=== PATIENT | male | born 1965 | race African-American/Black ===

== ENCOUNTER 2017-12-19 01:45 | Emergency (ER) | payer MEDICARE, OTHER ==
[~2017-12-19] VITALS: Ht 170.2 cm; Wt 99.8 kg
[2017-12-19 02:46] LABS: Urine Bacteria MOD /hpf (None Seen); Urine Blood Negative /uL (Negative); Urine Mucus FEW (None Seen); Urine Specific Gravity 1.004 (1.001-1.035); Urine WBC 30 /hpf (0 - 3)
[2017-12-19 03:31] LABS: Basophils # (auto) 0 uL; Eosinophils # (auto) 0 uL; Eosinophils % (auto) 0.1 % (0.0-7.0); Lymphocytes # (auto) 0.9 uL; Monocytes # (auto) 0.6 uL
[2017-12-19 03:33] LABS: Basophils % (auto) 0.4 % (0.0-2.0); Hematocrit 32.6 % (41.0-53.0); Lymphocytes % (auto) 9.7 % (10.0-50.0); Mean Corpuscular Hemoglobin 22.9 pg (28.0-32.0); Mean Corpuscular Hgb Conc. 30.8 g/dL (32.0-36.0); Mean Corpuscular Volume 74.4 fL (80.0-100.0); Monocytes % (auto) 6.4 % (0.0-12.0); Neutrophils # (auto) 7.7 uL; Neutrophils % (auto) 83.4 % (37.0-80.0); Platelet Count (auto) 294 10^3/uL (140-450); Red Blood Cells 4.38 10^6/uL (4.5-5.90); Red Cell Distribution Width 17.7 % (11.8-14.3); White Blood Cell 9.2 10^3/uL (4.4-10.8)
[2017-12-19 03:46] LABS: Alanine Aminotransferase 14 U/L (16-61); Albumin 4.2 g/dL (3.4-5.0); Anion Gap 12 (5-15); Aspartate Aminotransferase 9 U/L (15-37); BUN/Creatinine Ratio 9.9; Blood Urea Nitrogen 9 mg/dL (7-18); Calcium 9.8 mg/dL (8.5-10.1); Carbon Dioxide 20 mmol/L (21-32); Chloride 102 mmol/L (98-107); GFR African American 113 mL/min; GFR Non-African American 93 mL/min; Glucose 116 mg/dL (74-106); Magnesium 2.3 mg/dL (1.6-2.6); Potassium 3.6 mmol/L (3.5-5.1); Sodium 134 mmol/L (136-145)
[2017-12-19 03:51] LABS: Alkaline Phosphatase 98 U/L (45-117); Bilirubin, Total 0.5 mg/dL (0.2-1.0); Total Protein 9.1 g/dL (6.4-8.2)
[2017-12-19 03:52] LABS: INR 0.99 (0.9-1.15); Partial Thromboplastin Time 24.9 sec (22.64-33.71); Prothrombin Time 10.8 sec (9.37-12.3)
[2017-12-19] MEDS ORDERED: SODIUM CHLORIDE 0.9% 1,000 ML IV ONE (07:17)
[2017-12-19] MEDS ORDERED: cefTRIAXone 1GM/10ml IVPUSH 10 ML IV ONE (07:30)
[2017-12-19] MEDS ORDERED: IOHEXOL 350 MG/ML 100ML IJ ONE (08:27)
[2017-12-19 10:58] VITALS: BP 108/75
== END 2017-12-19 13:50 | disposition home or self-care (01) ==
LOC: EDBD 01:45 → ER 01:51
DX: K44.9 Diaphragmatic hernia without obstruction or gangrene (principal); N39.0 Urinary tract infection, site not specified; M45.0 Ankylosing spondylitis of multiple sites in spine; I10 Essential (primary) hypertension; R53.2 Functional quadriplegia; Z90.49 Acquired absence of other specified parts of digestive tract; Z89.512 Acquired absence of left leg below knee; Z99.3 Dependence on wheelchair
CPT/HCPCS: 36415; 71045; 71275; 80053; 81001; 83735; 83880; 84443; 84484; 85025; 85379; 85610; 85730; 93005; 96361; 96374; 99285; J7030; Q9967

== ENCOUNTER 2024-12-31 15:36 | Emergency (ER) | payer MEDICAID, OTHER ==
[~2024-12-31] VITALS: Ht 160 cm; Wt 70.0 kg
[2024-12-31 15:51] VITALS: BP 135/78; PULSE 96; RESP 24; O2SAT 96
--- NOTE | 2024-12-31 16:18 | ED.PDOC ---
Altered Mental Status HPI Comments 59 year old female TERRI presents to the ED with chief complaint of ETOH intoxication. Patient reports that she had drank 1 pint of 5$ vodka from the liquor store today. Patient relays that she had gotten into an argument with her son earlier. Patient states she is stressed as her dog is going to be euthanized tomorrow. Patient denies any N/V/D, dizziness, headache, chest pain, or SOB. Chief Complaint: ETOH Time Seen by MD: 16:15 Primary Care Provider: [facility] Reviewed Notes: Nurses Notes, Locomotive Crane Engineer Notes, Medications, Allergies Allergies: Coded Allergies: NO KNOWN ALLERGIES (Unverified , 12/19/17) Home Meds Reported Medications Lisinopril (Lisinopril) 20 Mg Tab, 1 TAB PO DAILY 01/03/25 Metoprolol Succinate (Metoprolol Succinate Er) 50 Mg Tab, 1 TAB PO DAILY 01/03/25 Pantoprazole Sodium Sesquihydr (Pantoprazole Sodium) 40 Mg Tab, 1 TAB PO DAILY 01/03/25 Information Source: Patient, Emergency Med Personnel Mode of Arrival: EMS Severity: Moderate, Unable to Care for Self Timing: Hours Duration: Since onset Prehospital treatment: None Quality: Change in Behavior, Confusion Recent: Medication/Drug Abuse History of: None Associated Signs and Symptoms: None Past Medical History PAST MEDICAL HISTORY: HTN Past Medical History (Other): IBS Surgical History: Cholecystectomy, Hernia Repair Family History Family History: Unobtainable Social History Smoker: Non-Smoker Alcohol: Heavy Drugs: Denies Drug Use Lives In: Home Constitutional: denies: chills, diaphoresis, fatigue, fever, malaise, sweats, weakness, others EENTM: denies: blurred vision, double vision, ear bleeding, ear discharge, ear drainage, ear pain, ear ringing, eye pain, eye redness, hearing loss, mouth pain, mouth swelling, nasal discharge, nose bleeding, nose congestion, nose pain, photophobia, tearing, throat pain, throat swelling, voice changes, others Respiratory: denies: cough, hemoptysis, orthopnea, SOB at rest, shortness of breath, SOB with excertion, stridor, wheezing, others Cardiovascular: denies: chest pain, dizzy spells, diaphoresis, Dyspnea on exertion, edema, irregular heart beat, left arm pain, lightheadedness, palpitations, PND, syncope, others Gastrointestinal: denies: abdomen distended, abdominal pain, blood streaked bowels, constipated, diarrhea, dysphagia, difficulty swallowing, hematemesis, melena, nausea, poor appetite, poor fluid intake, rectal bleeding, rectal pain, vomiting, others Neurological: denies: dizziness, fainting, headache, left sided numbness, left sided weakness, numbness, paresthesia, pre-existing deficit, right sided numbness, right sided weakness, seizure, speech problems, tingling, tremors, weakness, others Musculoskeletal: denies: back pain, gout, joint pain, joint swelling, muscle pain, muscle stiffness, neck pain, others Integumetry: denies: bruises, change in color, change in hair/nails, dryness, laceration, lesions, lumps, rash, wounds, others Allergic/Immunocompromised: denies: Difficulty Healing, Frequent Infections, Hives, Itching, others Hematologic/Lymphatic: denies: anemia, blood clots, easy bleeding, easy bruising, swollen glands, others Endocrine: denies: excessive hunger, excessive sweating, excessive thirst, excessive urination, flushing, intolerance to cold, intolerance to heat, unexplained weight gain, unexplained weight loss, others Psychiatric: denies: anxiety, bipolar disorder, depression, hopeless, panic disorder, schizophrenia, sleepless, suicidal, others Unable to Obtain due to: Altered Mental Status All Other Systems: Reviewed and Negative Physical Exam General Appearance: No Apparent Distress, Normal, Other (Clinically intoxicated, slurred speech) HEENT: Normal ENT Inspection, Pharynx Normal, TMs Normal Neck: Full Range of Motion, Non-Tender, Normal, Normal Inspection Respiratory: Chest Non-Tender, Lungs Clear, No Accessory Muscle Use, No Respiratory Distress, Normal Breath Sounds Cardiovascular: No Edema, No JVD, No Murmur, No Gallop, Normal Peripheral Pulses, Regular Rate/Rhythm Breast Exam: Deferred Gastrointestinal: No Organomegaly, Non Tender, No Pulsatile Mass, Normal Bowel Sounds, Soft Genitalia: Deferred Pelvic: Deferred Rectal: Deferred Extremities: No calf tenderness, Normal capillary refill, Normal inspection, Normal range of motion, Non-tender, No pedal edema Musculoskeletal : Apperance: Normal Neurologic: Alert, airfield services officer II-XII nml as Tested, No Motor Deficits, Normal Affect, Normal Mood, No Sensory Deficits Cerebellar Function: Normal Reflexes: Normal Skin: Dry, Normal Color, Warm Lymphatic: No Adenopathy Was a procedure done? Was a procedure done?: No Differential Diagnosis (ALOC) Differential Diagnosis: Dehydration, ETOH Intoxication X-Ray, Labs, Meds, VS Vital Signs Date Time Temp Pulse Resp B/P (MAP) Pulse Ox O2 Delivery O2 Flow Rate FiO2 12/31/24 15:51 98.0 96 24 135/78 (97) 96 Time of 1ST Reevaluation: 17:15 Reevaluation 1ST: Unchanged Patient Education/Counseling: Diagnosis, Treatment Family Education/Counseling: No Family Present Additional Information The following tests were ordered, and results were reviewed by me: Additional Information was gathered from interviewing the following independent historians: I reviewed and agreed with the following test results read by other providers: I discussed treatment and results with medical personnel and: Departure 1 Departure Time of Disposition: 17:50 (Intoxicated. Patient eloped from the emergency department) Impression: Primary Impression: Alcohol intoxication with delirium Disposition: 07 LEFT AWOL/ELOPED Condition: Serious Critical Care Note Critical Care Time?: No Stability Stability form required: No Heart Score Heart Score: Heart Score Response (Comments) Value History N/A 0 EKG N/A 0 Age N/A 0 Risk Factors N/A 0 Troponin N/A 0 Total 0 I personally scribed for SHERYL BARNES MD ([email or web address]) on 12/31/24 at 16:18. Electronically submitted by Den Nagel ([email or web address]). SHERYL BARNES MD Dec 31, 2024 16:18
== END 2025-01-01 06:51 | disposition left against medical advice (07) ==
LOC: ER 15:36 → EDSEX 15:36 → EDBD 15:36 → EDUNIT# 15:36 → ER 01-01 06:51
DX: F10.129 Alcohol abuse with intoxication, unspecified (principal); I10 Essential (primary) hypertension; Z98.890 Other specified postprocedural states; Z90.49 Acquired absence of other specified parts of digestive tract; Z79.899 Other long term (current) drug therapy

== ENCOUNTER 2025-01-02 21:20 | Inpatient (IN) | payer MEDICAID ==
[~2025-01-02] VITALS: Ht 152.4 cm; Wt 71.0 kg
[2025-01-02 21:55] VITALS: PULSE 94; RESP 20; O2SAT 96
[2025-01-02] MEDS: LORazepam 2MG/ML-1ML VIAL IM ONE (23:07)
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
[2025-01-03 00:45] LABS: Albumin 4.4 g/dL (3.2-4.8); Anion Gap 13 (5-15); Bilirubin, Total 0.3 mg/dL (0.2-1.0); Calcium 9.3 mg/dL (8.7-10.4); Carbon Dioxide 26 mmol/L (20-31); Chloride 104 mmol/L (98-107); Sodium 143 mmol/L (136-145)
[2025-01-03 00:46] LABS: Total Protein 7.4 g/dL (5.7-8.2)
[2025-01-03 00:59] LABS: Basophils # (auto) 0.1 10 ^3/uL (0-0.2); Eosinophils # (auto) 0.1 10 ^3/uL (0-0.8); Hemoglobin 12.2 g/dL (12.2-16.2); Monocytes # (auto) 0.5 10 ^3/uL (0-1.3); White Blood Cell 8.5 10^3/uL (4.4-10.8)
[2025-01-03 01:01] LABS: Basophils % (auto) 1.5 % (0.0-2.0); Eosinophils % (auto) 0.8 % (0.0-7.0); Hematocrit 36.3 % (36.0-46.0); Lymphocytes # (auto) 1.6 10 ^3/uL (0.4-5.4); Lymphocytes % (auto) 19.3 % (10.0-50.0); Mean Corpuscular Hemoglobin 36.6 pg (28.0-32.0); Mean Corpuscular Hgb Conc. 33.7 g/dL (32.0-36.0); Mean Corpuscular Volume 108.7 fL (80.0-100.0); Neutrophils # (auto) 6.1 10 ^3/uL (1.6-8.6); Neutrophils % (auto) 72.4 % (37.0-80.0); Nucleated Red Blood Cells % 0.1 %; Platelet Count (auto) 292 10^3/uL (140-450); Red Blood Cells 3.34 10^6/uL (4.0-5.20)
[2025-01-03 01:14] LABS: Alanine Aminotransferase 41 U/L (7-40); Alkaline Phosphatase 283 U/L (46-116); Aspartate Aminotransferase 176 U/L (13-40); BUN/Creatinine Ratio 7.5 (10.0-20.0); Blood Urea Nitrogen < 5 mg/dL (9-23); Glucose 112 mg/dL (74-106); Potassium 3.1 mmol/L (3.5-5.1)
[2025-01-03 01:59] LABS: Blood Alcohol 303.8 mg/dL (<10)
[2025-01-03] MEDS: SODIUM CHLORIDE 0.9% 1,000 ML IV ONE (04:29)
[2025-01-03] MEDS: LORazepam 2MG/ML-1ML VIAL IV PRN ×2 (04:30→15:24)
[2025-01-03] MEDS: LORazepam 2MG/ML-1ML VIAL IV SCH ×2 (06:45→08:33)
[2025-01-03] MEDS: LORazepam 2MG/ML-1ML VIAL IV ONE (06:45)
[2025-01-03] MEDS: LOPERAMIDE HCL 2 MG CAP/TAB PO PRN (06:46)
[2025-01-03] MEDS: ONDANSETRON HCL 4 MG/2 ML VIAL IV PRN (06:46)
[2025-01-03] MEDS: THIAMINE HCL 100 MG TAB PO ONE (06:46)
[2025-01-03] MEDS: ACETAMINOPHEN 325 MG TAB PO ONE (06:52)
[2025-01-03] MEDS ORDERED: NITROGLYCERIN 0.4 MG SL TAB SL PRN (07:15)
[2025-01-03] MEDS ORDERED: ACETAMINOPHEN 325 MG TAB PO PRN (07:15)
[2025-01-03] MEDS ORDERED: MORPHINE SULFATE INJ 2 MG/ml SYRG IV PRN (07:15)
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
[2025-01-03 08:00] VITALS: PULSE 82; RESP 16; O2SAT 99
[2025-01-03] MEDS ORDERED: LISI20TA56 PO (08:45)
[2025-01-03] MEDS ORDERED: PANT40T PO (08:45)
[2025-01-03] MEDS ORDERED: METO-289 PO (08:45)
[2025-01-03] MEDS: POTASSIUM EFFERVESENT TAB 25 MEQ PO ONE (09:05)
[2025-01-03] MEDS: MAGNESIUM SULFATE 1GM/100ML 100 ML IV SCH (09:06)
[2025-01-03] MEDS: SODIUM CHLORIDE 0.9% 1,000 ML IVB ONE (09:06)
[2025-01-03] MEDS: METOPROLOL SUCCINATE XL 50 MG TAB PO SCH (10:28)
[2025-01-03] MEDS: PANTOPRAZOLE 40 MG TAB PO SCH (10:29)
[2025-01-03] MEDS: LISINOPRIL 20 MG TAB PO SCH (10:29)
[2025-01-03] MEDS: MULTIPLE VITAMIN TAB PO SCH (10:29)
[2025-01-03] MEDS: THIAMINE 100mg/ml INJ (200mg/2ml VIAL) IV SCH (10:30)
[2025-01-03 11:36] LABS: Urine Bacteria None Seen /hpf (None Seen)
[2025-01-03] MEDS: FOLIC ACID 1 MG in D5W 5% 50 ML INJ SCH (11:39)
[2025-01-03 11:59] LABS: Urine Blood Negative /uL (Negative); Urine Clarity Clear (Clear); Urine Color Light-Yellow (Yellow); Urine Hyaline Cast FEW /lpf (0 - 2); Urine Mucus FEW (None Seen); Urine Protein, UAD Negative (Negative); Urine Specific Gravity 1.014 (1.001-1.035); Urine Squamous Epithelial Cell FEW /hpf (<5); Urine Urobilinogen Normal (Negative); Urine WBC 4 /HPF (0-5)
[2025-01-03 12:16] LABS: Amphetamine Screen, Urine Neg (NEGATIVE); Barbiturate Scree,Urine Neg (NEGATIVE); Benzodiazephine Screen, Urine Pos (NEGATIVE); Cannabinoid Screen, Urine Neg (NEGATIVE); Cocaine Screen, Urine Neg (NEGATIVE); Opiate Scree,Urine Neg (NEGATIVE); Phencyclidine Screen, Urine Neg (NEGATIVE)
[2025-01-03 12:23] LABS: Basophils # (auto) 0.1 10 ^3/uL (0-0.2); Eosinophils # (auto) 0 10 ^3/uL (0-0.8); Hemoglobin 12.6 g/dL (12.2-16.2); Lymphocytes # (auto) 0.7 10 ^3/uL (0.4-5.4); Lymphocytes % (auto) 8.6 % (10.0-50.0); Monocytes # (auto) 0.4 10 ^3/uL (0-1.3); Nucleated Red Blood Cells % 0.1 %
[2025-01-03 12:28] LABS: Eosinophils % (auto) 0.4 % (0.0-7.0); Hematocrit 37.9 % (36.0-46.0); Mean Corpuscular Hemoglobin 36.3 pg (28.0-32.0); Mean Corpuscular Hgb Conc. 33.1 g/dL (32.0-36.0); Mean Corpuscular Volume 109.8 fL (80.0-100.0); Monocytes % (auto) 5.6 % (0.0-12.0); Neutrophils # (auto) 6.5 10 ^3/uL (1.6-8.6); Neutrophils % (auto) 84.4 % (37.0-80.0); Platelet Count (auto) 210 10^3/uL (140-450); Red Blood Cells 3.46 10^6/uL (4.0-5.20); Red Cell Distribution Width 16.2 % (11.8-14.3); White Blood Cell 7.7 10^3/uL (4.4-10.8)
[2025-01-03 12:45] LABS: Anion Gap 12 (5-15); Calcium 9.1 mg/dL (8.7-10.4); Carbon Dioxide 24 mmol/L (20-31); Chloride 103 mmol/L (98-107); Potassium 4.3 mmol/L (3.5-5.1); Sodium 139 mmol/L (136-145)
[2025-01-03 12:51] LABS: Blood Alcohol 8.5 mg/dL (<10); Glucose 98 mg/dL (74-106)
[2025-01-03 12:52] LABS: BUN/Creatinine Ratio 7.2 (10.0-20.0); Blood Urea Nitrogen < 5 mg/dL (9-23); Magnesium 2.3 mg/dL (1.6-2.6)
[2025-01-03 20:00] VITALS: BP 168/79; PULSE 66; RESP 18; TEMP 98.3; O2SAT 97
[2025-01-03 20:30] VITALS: BP 178/85; PULSE 62; PULSE 64; RESP 17; TEMP 98.3; O2SAT 97
[2025-01-03] MEDS ORDERED: METOPROLOL TARTRATE 50 MG TAB PO SCH (20:30)
[2025-01-03 21:00] VITALS: BP 178/85; PULSE 68; RESP 20; O2SAT 99
[2025-01-03 22:00] VITALS: BP 156/74; PULSE 62; RESP 18; O2SAT 96
[2025-01-03] MEDS: METOPROLOL TARTRATE 50 MG TAB PO ONE (22:46)
[2025-01-03 23:00] VITALS: BP 155/88; PULSE 76; RESP 13; O2SAT 92
[2025-01-04] VITALS (18 sets, daily range): BP systolic 100–175; BP diastolic 67–95; PULSE 60–83; RESP 10–23; TEMP 98–99.2; O2SAT 93–99
[2025-01-04 06:14] LABS: Eosinophils # (auto) 0.1 10 ^3/uL (0-0.8); Hemoglobin 12.7 g/dL (12.2-16.2); Monocytes # (auto) 0.4 10 ^3/uL (0-1.3); Nucleated Red Blood Cells % 0.1 %
[2025-01-04 06:19] LABS: Basophils # (auto) 0 10 ^3/uL (0-0.2); Basophils % (auto) 0.7 % (0.0-2.0); Eosinophils % (auto) 1.8 % (0.0-7.0); Hematocrit 37.6 % (36.0-46.0); Lymphocytes # (auto) 0.9 10 ^3/uL (0.4-5.4); Lymphocytes % (auto) 12.3 % (10.0-50.0); Mean Corpuscular Hemoglobin 36.8 pg (28.0-32.0); Mean Corpuscular Hgb Conc. 33.9 g/dL (32.0-36.0); Mean Corpuscular Volume 108.5 fL (80.0-100.0); Monocytes % (auto) 5.3 % (0.0-12.0); Neutrophils # (auto) 5.7 10 ^3/uL (1.6-8.6); Neutrophils % (auto) 79.9 % (37.0-80.0); Platelet Count (auto) 196 10^3/uL (140-450); Red Blood Cells 3.46 10^6/uL (4.0-5.20); Red Cell Distribution Width 16.1 % (11.8-14.3); White Blood Cell 7.1 10^3/uL (4.4-10.8)
[2025-01-04 06:28] LABS: Alanine Aminotransferase 37 U/L (7-40); Albumin 4.3 g/dL (3.2-4.8); Anion Gap 10 (5-15); Calcium 10.2 mg/dL (8.7-10.4); Carbon Dioxide 27 mmol/L (20-31); Chloride 98 mmol/L (98-107); Glucose 89 mg/dL (74-106); Total Protein 7.4 g/dL (5.7-8.2)
[2025-01-04 06:35] LABS: Alkaline Phosphatase 299 U/L (46-116); Aspartate Aminotransferase 132 U/L (13-40); BUN/Creatinine Ratio 7.4 (10.0-20.0); Bilirubin, Total 1.3 mg/dL (0.2-1.0); Blood Urea Nitrogen < 5 mg/dL (9-23); Sodium 135 mmol/L (136-145)
[2025-01-04] MEDS: FOLIC ACID 1 MG in D5W 5% 50 ML INJ SCH (10:55)
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
== END 2025-01-04 13:55 | disposition home or self-care (01) | DRG 775 ==
LOC: EDBD 21:20 → ER 21:20 → OVERFLOW 01-03 07:01
PROVIDERS: ADMIT Hospitalist; ATTEND Hospitalist
DX: F10.139 Alcohol abuse with withdrawal, unspecified (principal); F22 Delusional disorders; E87.6 Hypokalemia; I10 Essential (primary) hypertension; K58.9 Irritable bowel syndrome, unspecified; Z90.49 Acquired absence of other specified parts of digestive tract; Z96.651 Presence of right artificial knee joint; Z90.710 Acquired absence of both cervix and uterus; Y90.9 Presence of alcohol in blood, level not specified; Z79.899 Other long term (current) drug therapy
CPT/HCPCS: 36415; 80048; 80053; 80307; 80320; 81001; 83735; 85025; 96361; 96372; 96374; 96375; G0378; J2405; J7060

== ENCOUNTER 2025-05-08 13:56 | Emergency (ER) | payer MEDICAID ==
[~2025-05-08] VITALS: Ht 154.9 cm; Wt 68.1 kg
[~2025-05-08 13:56] MED LIST: LISI20TA56 PO; METO-289 PO; PANT40T PO
--- NOTE | 2025-05-08 14:24 | ED.PDOC ---
GI ASSESSMENT HPI Comments 59 y/o F, with PMHx of alcohol abuse and HTN presents to the ED for CC of nausea/vomiting. Per EMS, patient is coming from home where she c/o N/V/D xdays. Patient relays, drinking half a pint of Vodka today (05/08/25). Patient denies visual hallucinations, auditory hallucinations, melena, tremors, or hematochezia. No other symptoms or modifiers present at this time. Chief Complaint: Nausea/Vomiting Time Seen by MD: 14:15 Primary Care Provider: [facility] Reviewed Notes: Nurses Notes, Medications, Allergies Allergies: Coded Allergies: NO KNOWN ALLERGIES (Unverified , 12/19/17) Home Meds Reported Medications Lisinopril (Lisinopril) 20 Mg Tab, 1 TAB PO DAILY 01/03/25 Metoprolol Succinate (Metoprolol Succinate Er) 50 Mg Tab, 1 TAB PO DAILY 01/03/25 Pantoprazole Sodium Sesquihydr (Pantoprazole Sodium) 40 Mg Tab, 1 TAB PO DAILY 01/03/25 Information Source: Patient, Emergency Med Personnel Mode of Arrival: EMS Timing: Days Duration: Since onset Prehospital treatment: None Quality: None Vomitus: Watery Stool: Impaction Severity: Moderate Recent: None Recent Hx of: None Pain Location: None Modifying Factors: Nothing Associated sign and symptoms: Nausea, Vomiting, Diarrhea Past Medical History PAST MEDICAL HISTORY: HTN Surgical History: Cholecystectomy, Hernia Repair Family History Family History: Unobtainable Social History Smoker: Non-Smoker Alcohol: Heavy Drugs: Denies Drug Use Lives In: Home Constitutional: denies: chills, diaphoresis, fatigue, fever, malaise, sweats, weakness, others EENTM: denies: blurred vision, double vision, ear bleeding, ear discharge, ear drainage, ear pain, ear ringing, eye pain, eye redness, hearing loss, mouth pain, mouth swelling, nasal discharge, nose bleeding, nose congestion, nose pain, photophobia, tearing, throat pain, throat swelling, voice changes, others Respiratory: denies: cough, hemoptysis, orthopnea, SOB at rest, shortness of breath, SOB with excertion, stridor, wheezing, others Cardiovascular: denies: chest pain, dizzy spells, diaphoresis, Dyspnea on exertion, edema, irregular heart beat, left arm pain, lightheadedness, palpitations, PND, syncope, others Gastrointestinal: denies: abdomen distended, abdominal pain, blood streaked bowels, constipated, diarrhea, dysphagia, difficulty swallowing, hematemesis, melena, nausea, poor appetite, poor fluid intake, rectal bleeding, rectal pain, vomiting, others Genitourinary: denies: abnormal vagina bleeding, burning, dyspareunia, dysuria, flank pain, frequency, hematuria, incontinence, pain, , vagina discharge, urgency, others Neurological: denies: dizziness, fainting, headache, left sided numbness, left sided weakness, numbness, paresthesia, pre-existing deficit, right sided numbness, right sided weakness, seizure, speech problems, tingling, tremors, weakness, others Musculoskeletal: denies: back pain, gout, joint pain, joint swelling, muscle pain, muscle stiffness, neck pain, others Integumetry: denies: bruises, change in color, change in hair/nails, dryness, laceration, lesions, lumps, rash, wounds, others Allergic/Immunocompromised: denies: Difficulty Healing, Frequent Infections, Hives, Itching, others Hematologic/Lymphatic: denies: anemia, blood clots, easy bleeding, easy bruising, swollen glands, others Endocrine: denies: excessive hunger, excessive sweating, excessive thirst, excessive urination, flushing, intolerance to cold, intolerance to heat, unexplained weight gain, unexplained weight loss, others Psychiatric: denies: anxiety, bipolar disorder, depression, hopeless, panic disorder, schizophrenia, sleepless, suicidal, others All Other Systems: Reviewed and Negative Physical Exam General Appearance: Moderate Distress HEENT: Normal ENT Inspection, Pharynx Normal, TMs Normal Neck: Full Range of Motion, Non-Tender, Normal, Normal Inspection Respiratory: Chest Non-Tender, Lungs Clear, No Accessory Muscle Use, No Respiratory Distress, Normal Breath Sounds Cardiovascular: No Edema, No JVD, No Murmur, No Gallop, Normal Peripheral Pulses, Regular Rate/Rhythm Breast Exam: Deferred Gastrointestinal: No Organomegaly, Non Tender, No Pulsatile Mass, Normal Bowel Sounds, Soft Genitalia: Deferred Pelvic: Deferred Rectal: Deferred Extremities: No calf tenderness, Normal capillary refill, Normal inspection, Normal range of motion, Non-tender, No pedal edema Musculoskeletal : Apperance: Normal Neurologic: Alert, casino porter II-XII nml as Tested, No Motor Deficits, Normal Affect, Normal Mood, No Sensory Deficits Cerebellar Function: NOT DONE Reflexes: NOT DONE Skin: Dry, Normal Color, Warm Peripheral Pulses: 3+ Radial (R), 3+ Radial (L) Lymphatic: No Adenopathy Was a procedure done? Was a procedure done?: No GI differential Dx Differential Diagnosis: Constipation, Diverticular disease, Esophagitis, Gastritis/PUD, Gastroenteritis, Inflammatory BD, Electrolyte Imbalance, Food Poisoning, Bacterial, Viral X-Ray, Labs, Meds, VS Vital Signs Date Time Temp Pulse Resp B/P (MAP) Pulse Ox O2 Delivery O2 Flow Rate FiO2 05/08/25 13:58 98.2 88 18 145/89 (107) 97 98.2 Patient alert. Vitals stable. Possible dehydration. Answering all questions. History of alcohol abuse. Establish intravenous access. Was given fluids. Was given thiamine. Combination of alcohol abuse with heat exhaustion. Explained to the patient. Was told to follow up with her primary care physician. Was told to come back if there is any problem. Time of 1ST Reevaluation: 14:45 Reevaluation 1ST: Unchanged Patient Education/Counseling: Diagnosis, Treatment Family Education/Counseling: No Family Present SEPSIS Sepsis Screen Date sepsis recognized/suspect: May 08, 2025 Time Sepsis recognized/suspect: 8 Recent Procedure: No On Antibiotic Therapy: No Respiratory Rate >20: No Heart Rate >90: No Temp<36 C (96.8 F) or >38.3 C: No SBP <90 or MAP <65 mmHG: No New Acute Mental Status Change: No Is the patient on CPAP, BIPAP,: No Physician Orders Urinalysis (05/08/25 14:21) Sodium Chloride 0.9% (05/08/25 14:30) Sodium Chloride 0.9% (05/08/25 14:30) Vital Signs Date Time Temp Pulse Resp B/P (MAP) Pulse Ox O2 Delivery O2 Flow Rate FiO2 05/08/25 13:58 98.2 88 18 145/89 (107) 97 98.2 Departure 1 Departure Time of Disposition: 14:35 Impression: Primary Impression: Alcohol intoxication Qualified Codes: F10.920 - Alcohol use, unspecified with intoxication, uncomplicated Additional Impression: Heat exhaustion Qualified Codes: T67.5XXA - Heat exhaustion, unspecified, initial encounter Disposition: HOME / SELF CARE / HOMELESS Condition: Good Discharged With: Self Critical Care Note Critical Care Time?: No Stability Stability form required: No Heart Score Heart Score: Heart Score Response (Comments) Value History N/A 0 EKG N/A 0 Age N/A 0 Risk Factors N/A 0 Troponin N/A 0 Total 0 I personally scribed for ARIC LLOYD MD ([email or web address]) on 05/08/25 at 14:24. Electronically submitted by Ekta Chisholm ([email or web address]). I personally scribed for ARIC LLOYD MD ([email or web address]) on 05/08/25 at 14:31. Electronically submitted by Ekta Chisholm ([email or web address]). ARIC LLOYD MD May 08, 2025 14:24
[2025-05-08] MEDS: SODIUM CHLORIDE 0.9% 1,000 ML IV ONE ×2 (15:26→15:32)
[2025-05-08 15:30] VITALS: BP 139/89; PULSE 90; RESP 18; TEMP 98.6; O2SAT 98
[2025-05-08] MEDS: THIAMINE 100mg/ml INJ (200mg/2ml VIAL) IV ONE (15:31)
== END 2025-05-08 17:20 | disposition left against medical advice (07) ==
LOC: EDBD 13:56 → ER 13:56
DX: T67.5XXA Heat exhaustion, unspecified, initial encounter (principal); F10.929 Alcohol use, unspecified with intoxication, unspecified; I10 Essential (primary) hypertension; Z98.890 Other specified postprocedural states; Z79.899 Other long term (current) drug therapy; Z90.49 Acquired absence of other specified parts of digestive tract; X58.XXXA Exposure to other specified factors, initial encounter; Y93.9 Activity, unspecified; Y92.89 Other specified places as the place of occurrence of the external cause; Y99.8 Other external cause status; Y90.8 Blood alcohol level of 240 mg/100 ml or more
CPT/HCPCS: 36415; 80320; 96361; 96374; 99283; J3411; J7030

== ENCOUNTER 2025-05-09 15:31 | Emergency (ER) | payer MEDICAID ==
[~2025-05-09] VITALS: Ht 152.4 cm; Wt 64.0 kg
--- NOTE | 2025-05-09 15:45 | ED.PDOC ---
General HPI Comments 59 y/o F, BIBA, with PMHx of alcohol abuse and HTN presents to the ED for CC of urinary retention. EMS reports, patient is coming from home where she c/o urinary retention onset, x1day. Patient endorses, drinking alcohol heavily having approximately half a pint of vodka daily. At this time patient is having active visual hallucinations; reports "it's black and there is bats flying". Patient denies dysuria, hematuria, back pain, fever, nausea, or vomiting. No other symptoms or modifying factors present at this time. Chief Complaint: Urinary Time Seen by MD: 15:36 Primary Care Provider: [facility] Reviewed notes: Nurses Notes, Medications, Allergies Allergies: Coded Allergies: NO KNOWN ALLERGIES (Unverified , 12/19/17) Home Meds Reported Medications Lisinopril (Lisinopril) 20 Mg Tab, 1 TAB PO DAILY 01/03/25 Metoprolol Succinate (Metoprolol Succinate Er) 50 Mg Tab, 1 TAB PO DAILY 01/03/25 Pantoprazole Sodium Sesquihydr (Pantoprazole Sodium) 40 Mg Tab, 1 TAB PO DAILY 01/03/25 Information Source: Patient, Emergency Med Personnel Mode of Arrival: EMS Severity: Moderate Inability to void: Moderate Timing: Days Duration: Since onset Prehospital treatment: None Onset: Spontaneous Symptoms: Inability to void History of: None Modifying factors: None associated signs and symptoms: Abdominal Pain Past Medical History PAST MEDICAL HISTORY: HTN Surgical History: Cholecystectomy, Hernia Repair Family History Family History: Unobtainable Social History Smoker: Non-Smoker Alcohol: Heavy Drugs: Denies Drug Use Lives In: Home Constitutional: denies: chills, diaphoresis, fatigue, fever, malaise, sweats, weakness, others EENTM: denies: blurred vision, double vision, ear bleeding, ear discharge, ear drainage, ear pain, ear ringing, eye pain, eye redness, hearing loss, mouth pain, mouth swelling, nasal discharge, nose bleeding, nose congestion, nose pain, photophobia, tearing, throat pain, throat swelling, voice changes, others Respiratory: denies: cough, hemoptysis, orthopnea, SOB at rest, shortness of breath, SOB with excertion, stridor, wheezing, others Cardiovascular: denies: chest pain, dizzy spells, diaphoresis, Dyspnea on exertion, edema, irregular heart beat, left arm pain, lightheadedness, palpitations, PND, syncope, others Gastrointestinal: reports: abdomen distended, abdominal pain; denies: blood streaked bowels, constipated, diarrhea, dysphagia, difficulty swallowing, hematemesis, melena, nausea, poor appetite, poor fluid intake, rectal bleeding, rectal pain, vomiting, others Genitourinary: denies: abnormal vagina bleeding, burning, dyspareunia, dysuria, flank pain, frequency, hematuria, incontinence, pain, , vagina discharge, urgency, others Neurological: denies: dizziness, fainting, headache, left sided numbness, left sided weakness, numbness, paresthesia, pre-existing deficit, right sided numbness, right sided weakness, seizure, speech problems, tingling, tremors, weakness, others Musculoskeletal: denies: back pain, gout, joint pain, joint swelling, muscle pain, muscle stiffness, neck pain, others Integumetry: denies: bruises, change in color, change in hair/nails, dryness, laceration, lesions, lumps, rash, wounds, others Allergic/Immunocompromised: denies: Difficulty Healing, Frequent Infections, Hives, Itching, others Hematologic/Lymphatic: denies: anemia, blood clots, easy bleeding, easy bruising, swollen glands, others Endocrine: denies: excessive hunger, excessive sweating, excessive thirst, excessive urination, flushing, intolerance to cold, intolerance to heat, unexplained weight gain, unexplained weight loss, others Psychiatric: denies: anxiety, bipolar disorder, depression, hopeless, panic disorder, schizophrenia, sleepless, suicidal, others All Other Systems: Reviewed and Negative Physical Exam General Appearance: Mild Distress, Normal HEENT: Normal ENT Inspection, Pharynx Normal Neck: Full Range of Motion, Non-Tender, Normal, Normal Inspection Respiratory: Chest Non-Tender, Lungs Clear, No Accessory Muscle Use, No Respiratory Distress, Normal Breath Sounds, Other (ROS INTACT) Cardiovascular: No Edema, No Murmur, No Gallop, Normal Peripheral Pulses, Regular Rate/Rhythm Breast Exam: Deferred Gastrointestinal: No Organomegaly, Non Tender, No Pulsatile Mass, Normal Bowel Sounds, Soft Genitalia: Deferred Pelvic: Deferred Rectal: Deferred Extremities: No calf tenderness, Normal capillary refill, Normal inspection, Normal range of motion, Non-tender, No pedal edema Musculoskeletal : Apperance: Normal Neurologic: assistant to the director II-XII nml as Tested, Disoriented, No Motor Deficits, Normal Affect, Normal Mood, No Sensory Deficits, Other (PATIENT HALLICINATING) Cerebellar Function: Normal Reflexes: Normal Skin: Dry, Normal Color, Warm Lymphatic: No Adenopathy Was a procedure done? Was a procedure done?: No Differential Diagnosis Kidney stone (Female): N/A Kidney stone (Male): N/A Penile/Scrotal: N/A Urinary Problem (Male): N/A Urinary Problem (Female): Urinary retention, Other (ETOH INTOXICATION, ETOH WITHDRAWALS) X-Ray, Labs, Meds, VS Vital Signs Date Time Temp Pulse Resp B/P (MAP) Pulse Ox O2 Delivery O2 Flow Rate FiO2 05/09/25 16:07 98.1 76 20 119/79 (92) 97 98.1 05/09/25 15:57 71 19 93 Room Air* 0 21 05/09/25 15:57 98.5 71 19 150/85 (106) 93 98.5 Lab Test 05/09/25 16:43 05/09/25 15:50 Range/Units Urine Color Light-yellow Yellow Urine Clarity Clear Clear Urine pH 6.0 5.0-9.0 Urine Specific Hodge 1.010 1.001-1.035 Urine Protein Negative Negative Urine Ketones Negative Negative Urine Blood Negative Negative /uL Urine Nitrite Negative Negative Urine Bilirubin Negative Negative Urine Urobilinogen Normal Negative mg/dL Urine Leukocyte Esterase Negative Negative /uL Urine RBC None seen 0 - 4 /hpf Urine Microscopic WBC < 1 0-5 /HPF Urine Squamous Epithelial Cells None seen <5 /hpf Urine Bacteria None seen None Seen /hpf Urine Glucose Normal Normal mg/dL Sodium Level 143 136-145 mmol/L Potassium Level 4.0 3.5-5.1 mmol/L Chloride Level 105 98-107 mmol/L Carbon Dioxide Level 24 20-31 mmol/L Anion Gap 14 5-15 Blood Urea Nitrogen 11 9-23 mg/dL Creatinine 0.91 0.550-1.02 mg/dL Glomerular Filtration Rate Calc 72 >90 mL/min BUN/Creatinine Ratio 12.1 10.0-20.0 Serum Glucose 82 74-106 mg/dL Calcium Level 9.4 8.7-10.4 mg/dL Plasma/Serum Blood Alcohol 310.1 H <10 mg/dL Current Medications Medications (Trade) Dose Ordered Sig/Usmaa Route Start Time Stop Time Status Last Admin Sodium Chloride 1,000 ml @ 1,000 mls/hr Q1H ONCE IV 05/09/25 15:45 05/09/25 16:44 DC 05/09/25 15:56 Lorazepam (Ativan Inj) 1 mg ONCE ONCE IV 05/09/25 16:00 05/09/25 16:01 DC 05/09/25 16:08 Ondansetron HCl (Zofran) 4 mg ONCE ONCE IV 05/09/25 17:00 05/09/25 17:01 DC 05/09/25 16:56 X-Ray, Labs, Meds, VS Comment Imaging: X-rays and CT scans were reviewed and interpreted by this provider, imaging shows no fractures and no pathological disease. Pending radiology review. Laboratory: Labs reviewed and interpreted by this provider. No significant ab normalities noted. Patient has prior medical visits reviewed. Med reconciliation performed Vital signs reviewed Martinez catheter inserted, patient was able to express 1000 states he is Recommended to patient leaving Martinez catheter inserted and her to follow up with Urology or PCP. Patient refused. Patient states she has a hard time getting to appointments and she does not know if she will be able to get to her appointments. Time of 1ST Reevaluation: 16:06 Reevaluation 1ST: Unchanged Patient Education/Counseling: Diagnosis, Treatment, Need For Follow Up (Follow up with PCP next available appointment) Family Education/Counseling: No Family Present SEPSIS Sepsis Screen Physician Orders Insert/Manage Urinary Catheter QSHIFT (05/09/25 16:38) Vital Signs Date Time Temp Pulse Resp B/P (MAP) Pulse Ox O2 Delivery O2 Flow Rate FiO2 05/09/25 16:07 98.1 76 20 119/79 (92) 97 98.1 05/09/25 15:57 71 19 93 Room Air* 0 21 05/09/25 15:57 98.5 71 19 150/85 (106) 93 98.5 Medications Medications Dose Ordered Sig/Usama Route Start Time Stop Time Status Last Admin Dose Admin Lorazepam 1 mg ONCE ONCE IV 05/09/25 16:00 05/09/25 16:01 DC 05/09/25 16:08 Ondansetron HCl 4 mg ONCE ONCE IV 05/09/25 17:00 05/09/25 17:01 DC 05/09/25 16:56 Sodium Chloride 1,000 ml @ 1,000 mls/hr Q1H ONCE IV 05/09/25 15:45 05/09/25 16:44 DC 05/09/25 15:56 Departure 1 Departure Time of Disposition: 17:54 Impression: Primary Impression: Alcohol intoxication Qualified Codes: F10.920 - Alcohol use, unspecified with intoxication, uncomplicated Additional Impressions: ALCOHOL ABUSE WITH WITHDRAWAL, UNSPECIFIED Urinary retention Disposition: 01 HOME / SELF CARE / HOMELESS Condition: Fair Discharged With: Self Critical Care Note Critical Care Time?: No Stability Stability form required: No Heart Score Heart Score: Heart Score Response (Comments) Value History N/A 0 EKG N/A 0 Age N/A 0 Risk Factors N/A 0 Troponin N/A 0 Total 0 I personally scribed for CHAPARRITA BRAVO ([email or web address]) on 05/09/25 at 15:45. Electronically submitted by Ekta Chisholm ([email or web address]). CHAPARRITA BRAVO May 09, 2025 15:45
[2025-05-09] MEDS: SODIUM CHLORIDE 0.9% 1,000 ML IV ONE (15:56)
[2025-05-09 15:57] VITALS: PULSE 71; RESP 19; O2SAT 93
[2025-05-09 16:07] VITALS: TEMP 98.1
[2025-05-09] MEDS: LORazepam 2MG/ML-1ML VIAL IV ONE (16:08)
[2025-05-09 16:20] LABS: Chloride 105 mmol/L (98-107); Potassium 4.0 mmol/L (3.5-5.1); Sodium 143 mmol/L (136-145)
[2025-05-09 16:21] LABS: Anion Gap 14 (5-15); Calcium 9.4 mg/dL (8.7-10.4); Carbon Dioxide 24 mmol/L (20-31)
[2025-05-09 16:26] LABS: BUN/Creatinine Ratio 12.1 (10.0-20.0); Blood Urea Nitrogen 11 mg/dL (9-23); Glucose 82 mg/dL (74-106)
[2025-05-09 16:55] LABS: Urine Protein, UAD Negative (Negative)
[2025-05-09] MEDS: ONDANSETRON HCL 4 MG/2 ML VIAL IV ONE (16:56)
[2025-05-09 17:59] VITALS: BP 175/93; PULSE 76; RESP 19; O2SAT 97
== END 2025-05-09 18:10 | disposition home or self-care (01) ==
LOC: EDBD 15:31 → ER 15:31
DX: F10.139 Alcohol abuse with withdrawal, unspecified (principal); F10.129 Alcohol abuse with intoxication, unspecified; R33.9 Retention of urine, unspecified; R44.1 Visual hallucinations; I10 Essential (primary) hypertension; Z90.49 Acquired absence of other specified parts of digestive tract; Z98.890 Other specified postprocedural states; Z79.899 Other long term (current) drug therapy; Y90.8 Blood alcohol level of 240 mg/100 ml or more
CPT/HCPCS: 36415; 51702; 80048; 80320; 81001; 96361; 96374; 96375; 99284; J2060; J2405; J7030

== ENCOUNTER 2025-05-14 21:18 | Emergency (ER) | payer MEDICAID, OTHER ==
[~2025-05-14] VITALS: Ht 167.6 cm; Wt 72.6 kg
[2025-05-14] MEDS ORDERED: SODIUM CHLORIDE 0.9% 1,000 ML IV ONE (21:45)
[2025-05-14] MEDS ORDERED: THIAMINE HCL 100 MG TAB PO ONE (21:45)
[2025-05-14 21:54] VITALS: BP 137/82; PULSE 110; RESP 20; TEMP 98.6; O2SAT 97
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
[2025-05-14 22:24] LABS: Hematocrit 33.9 % (36.0-46.0); Hemoglobin 11.7 g/dL (12.2-16.2); Mean Corpuscular Hemoglobin 34.2 pg (28.0-32.0); Mean Corpuscular Volume 99.4 fL (80.0-100.0); Nucleated Red Blood Cells % 0.1 %
[2025-05-14 22:37] LABS: Alanine Aminotransferase 32 U/L (7-40); Albumin 4.8 g/dL (3.2-4.8); Alkaline Phosphatase 179 U/L (46-116); Anion Gap 16 (5-15); BUN/Creatinine Ratio 8.4 (10.0-20.0); Blood Urea Nitrogen 9 mg/dL (9-23); Calcium 9.9 mg/dL (8.7-10.4); Carbon Dioxide 21 mmol/L (20-31); Chloride 99 mmol/L (98-107); Glucose 76 mg/dL (74-106); Magnesium 2.3 mg/dL (1.6-2.6); Potassium 4.0 mmol/L (3.5-5.1); Sodium 136 mmol/L (136-145); Total Protein 8.1 g/dL (5.7-8.2)
[2025-05-14 22:38] LABS: Bilirubin, Total 1.2 mg/dL (0.2-1.0)
[2025-05-14 22:42] LABS: Lactic Acid w/Reflex 3.7 mmol/L (0.4-2.0)
--- NOTE | 2025-05-14 22:43 | DVH ---
CT HEAD WITHOUT CONTRAST INDICATION: etoh poss fall EXAM DATE: 05/14/2025 10:00 PM COMPARISON: None RADIATION DOSE: CTDIvol: 50.89 mGy, DLP: 1998.32 mGy*cm PROCEDURE: CT scans of the head were obtained from the vertex to the skull base. Sagittal and coronal reconstructions were provided. All CT scans at this medical facility are performed using dose modulation techniques as appropriate t o a performed exam including the following: Automated exposure control was utilized; adjustment of th e MA and/or KV according to patient size; and use of iterative reconstruction technique. FINDINGS: Evaluation is degraded by motion and streak artifact. The cerebral parenchyma appears to be normal configuration and attenuation. The ventricles, cisterns , and sulci appear age-appropriate. There is no evidence for acute territorial infarct, hemorrhage, or mass effect. The orbits are normal. The visualized paranasal sinuses and mastoid air cells are clear. The soft t issues and osseous structures appear within normal limits. IMPRESSION: 1. Evaluation is degraded by motion and streak artifact. Within this limitation, no acute territoria l infarct, intracranial hemorrhage, or mass effect.
--- NOTE | 2025-05-14 22:45 | DVH ---
CT OF THE CERVICAL SPINE WITHOUT CONTRAST HISTORY: etoh poss fall COMPARISON: None TECHNIQUE: Helical images through the cervical spine were obtained without contrast. Sagittal and cor onal reformats were obtained. One or more of the following radiation dose reduction techniques were u sed for this examination: automated exposure control, adjustment of the mA and/or kV according to pat ient size, use of iterative reconstruction technique. FINDINGS: No acute displaced fracture. There is straightening of the cervical lordosis. There is minimal retrol isthesis of C4 on C5 and C5 on C6. Degenerative changes of the cervical spine characterized by endpl ate osteophytosis and intervertebral disc space narrowing. No high-grade spinal stenosis. Mild uncove rtebral hypertrophy contributes to mild multilevel neural foraminal narrowing. IMPRESSION: 1. No acute displaced fracture. 2. Degenerative changes of the cervical spine as detailed.
[2025-05-15] MEDS ORDERED: SODIUM CHLORIDE 0.9% 1,000 ML IV ONE (00:30)
== END 2025-05-15 00:56 | disposition left against medical advice (07) ==
LOC: ER 21:18 → MERGE 21:18 → EDBD 21:18 → ER 05-15 00:56
DX: F10.10 Alcohol abuse, uncomplicated (principal); K58.9 Irritable bowel syndrome, unspecified; Z79.899 Other long term (current) drug therapy; Y90.8 Blood alcohol level of 240 mg/100 ml or more
CPT/HCPCS: 36415; 70450; 72125; 80053; 80320; 83605; 83735; 85025